=== PATIENT | female | born 1995 | race Caucasian/White ===

== ENCOUNTER 2017-01-03 01:23 | Emergency (ER) | payer SELFPAY ==
[~2017-01-03] VITALS: Ht 160 cm; Wt 68.6 kg
[~2017-01-03 01:23] MED LIST: MICROGESTIN 1/21 TAB PO; VOLTAREN 75 DR75 MG PO; ZOFRAN ODT4 MG PO
[2017-01-03 01:25] VITALS: TEMP 97.8
[2017-01-03 03:13] VITALS: BP 111/74; PULSE 94
== END 2017-01-03 03:13 | disposition home or self-care (01) ==
LOC: COL.ER 01:23
DX: R51 Headache (principal)
CPT/HCPCS: J1200; J1885; J2550